=== PATIENT | female | born 1960 | race Hispanic/Latino ===

== ENCOUNTER 2016-07-17 11:11 | Outpatient (CLI) | payer BC ==
--- NOTE | 2016-07-17 11:52 | XRay Report ---
LEFT ELBOW, 2 views: History: Pain The bony architecture is intact without evidence of fracture or dislocation. No significant soft tissue abnormality is seen. IMPRESSION: Normal left elbow.
== END 2016-07-17 11:12 | disposition home or self-care (01) ==
LOC: SPVIMAG 11:11
PROVIDERS: ATTEND Internal Medicine Hematology & Oncology
DX: M25.522 Pain in left elbow (principal)

== ENCOUNTER 2016-09-13 09:11 | Outpatient (CLI) | payer BC ==
--- NOTE | 2016-09-13 10:38 | Ultrasound Report ---
LEFT BREAST ULTRASOUND: 09/13/16 09:11:00 CLINICAL: History of breast cancer status post bilateral mastectomy with repeat implant reconstruction. Status post right axillary node dissection. She complains of pain and thickening in the left axillary tail. FINDINGS: Ultrasound of the left breast(including all four quadrants and the retroareolar area) was performed and demonstrated an intact implant with no mass, cyst fluid, collection or shadowing. I examined the area of tenderness and felt no mass or lump. IMPRESSION: Negative left breast ultrasound. BI-RADS 1 - - Negative RECOMMENDATION: Clinical followup.
== END 2016-09-13 09:12 | disposition home or self-care (01) ==
LOC: SPVWC 09:11
PROVIDERS: ATTEND Internal Medicine Hematology & Oncology
DX: N64.4 Mastodynia (principal); Z85.3 Personal history of malignant neoplasm of breast; Z90.13 Acquired absence of bilateral breasts and nipples; Z98.82 Breast implant status